=== PATIENT | male | born 1965 | race Caucasian/White ===

== ENCOUNTER 2017-11-25 05:37 | Day surgery (SDC) | payer OTHER, SELFPAY ==
[2017-11-25] VITALS (7 sets, daily range): BP systolic 74–130; BP diastolic 50–90; PULSE 68–90; RESP 18–20; TEMP 36.1–36.6; O2SAT 95–100; BMI 22.7
--- NOTE | 2017-11-25 | COLBX_PTH ---
PATIENT: SHIRA ROMERO II LOC: EN U#:[id number] AGE/SX: 52/M ROOM: RE11/25/[address]: Dr. Lang King MD : [id number] BED: DIS: 11/25/2017 SPEC #: [id number] RECD: 11/25/17 12:30 STATUS: GLEN TAYLOR #: [id number] ANTONELLA: 11/25/17 00:[address]: Lang King DEPT: SURGICAL PATHOLOGY RECD BY: Emmanuel Olivo ENTERED: 11/25/17 13:28 SP TYPE: COLON BX OTHR DR: Dr. Michael Pugh MD Tissues: Sigmoid colon biopsy Procedures: Surgery Specimen Level IV HEADER OPERATION: Colonoscopy PRE-OP DIAGNOSIS: Screening TISSUE SUBMITTED: Proximal sigmoid polyp MICROSCOPIC DIAGNOSIS Proximal sigmoid colon polyp, biopsy: Tubular adenoma. AM:zachary 11/26/17 MICROSCOPIC DESCRIPTION Slides are reviewed. GROSS DESCRIPTION Received in fixative is one container labeled with the patient's name and designated proximal sigmoid polyp. The specimen consists of a piece of muñoz-pink polyp measuring 0.5 x 0.5 x 0.3 cm. The specimen is totally submitted in one cassette. / AM:zachary 11/25/17 TC:5 CPT: 70572
--- NOTE | 2017-11-25 06:18 | PCM.HP.STD ---
Problem List (1) Screening for intestinal cancer Status: Acute History of Present Illness Date of Admission: 11/25/17 The patient is a 52 year old M who presents for screening colonoscopy. He enjoys good health. He has had some rectal discomfort. Rare bleeding. There is no family history of colon cancer. He has never had a previous colonoscopy. He has been told that he has a weak pelvic floor by urology. He does not note any fecal incontinence.] Past Medical History Allergies levofloxacin [From Levaquin] Allergy (Verified 11/24/17 13:29) Other HEADACHE sulfamethoxazole [From Bactrim] Allergy (Verified 11/24/17 13:29) Other HEADACHE trimethoprim [From Bactrim] Allergy (Verified 11/24/17 13:29) Other HEADACHE Home Medications: Ambulatory Orders Medication Instructions Recorded acetaminophen 325 mg capsule 500 mg PO Q6H PRN 10/16/17 Surgical History: no surgical history Smoking Status: Never smoker Review of Systems Constitutional: Denies: Anorexia Eyes: Denies: Blurred vision HEENT: Denies: Difficulty Hearing Cardiovascular: Denies: Chest Pain Respiratory: Denies: Cough Gastrointestinal: Denies: Abdominal Pain Genitourinary: Denies: Dysuria Neurological: Denies: Balance problems Psychiatric: Denies: Anxiety VTE Information - Inpt Only VTE Present on Admission: No Patient Problems: Active and Suspected Problems (Last Updated 10/16/17 @ 09:11 by Maddy Dupree) Screening for intestinal cancer (Acute) - Physical Exam General: Alert, Oriented x3, Cooperative HEENT: Atraumatic Oral: Moist Mucosa Neck: Supple Lungs: Clear to auscultation Cardiovascular: Regular rate Abdomen: Bowel Sounds Present, Soft, Non Tender, No Hepato-splenomegaly Skin: No rashes Musculoskeletal: No Tenderness to Palpation of Joints or Extremities Neurological: Cranial nerves II-XII grossly intact Psych/Mental Status: Normal Affect Vital Signs Temp Pulse Resp BP Pulse Ox 97.0 F L 90 20 H 130/90 H 100 11/25/17 06:04 11/25/17 06:04 11/25/17 06:04 11/25/17 06:04 11/25/17 06:04 Oxygen Delivery Method Room Air Weight: 154 lb 1.65 oz Body Mass Index (BMI) 22.7 Assessment/Plan Active and Suspected Problems (Last Updated 10/16/17 @ 09:11 by Maddy Dupree) Screening for intestinal cancer (Acute) I am recommending the patient a screening colonoscopy. He is aware of the technique, benefits, risks, alternatives. He has had an opportunity to ask and have questions answered. We will proceed at his discretion. He presents via open access program. Lang King M.D., F.A.C.S.
--- NOTE | 2017-11-25 06:51 | PCM.OPRPT ---
Problem List (1) Screening for intestinal cancer Status: Acute Report of Operation Date of Procedure: 11/25/17 Pre-Operative Diagnosis: Screening for intestinal cancer Post-Operative Diagnosis: Sigmoid and descending colon diverticulosis. Sessile polyp in the proximal sigmoid. Minimal anal pruritus Surgery/Procedure Performed:: Colonoscopy with snare polypectomy Description of Surgical Findings:: Timeout and informed consent was obtained. 52-year-old gentleman was taken to the endoscopy suite. He was placed in the left lateral decubitus position. Throughout the procedure he received a total of 100 mg Demerol and 4 mg of Versed. External inspection of the anus demonstrated some minimal discoloration of the skin within 2 cm of the anus. There did not appear to be any active irritation. There were no significant external hemorrhoidal changes. Inspection of the anal tissue demonstrated some very slight irritation with minimal hemorrhoidal findings. Digital rectal exam normal 2+ smooth prostate no mass lesions no blood. Flexible colonoscope inserted in the rectum and readily advanced to the left colon transverse colon and into the ascending colon. The cecum ileocecal valve area was nicely achieved. Bowel prep was very good. The scope was carefully withdrawn from the cecum and ascending colon transverse colon descending colon and sigmoid colon. In the descending and sigmoid colon diverticulosis was identified but no evidence of acute inflammatory changes. A sessile 9 mm polyp in the proximal sigmoid was identified photograph was obtained snare cautery blend setting of 24 was used to resect and retrieve. Hemostasis was nicely intact. The scope was further withdrawn retroflexed within the rectum the anorectal verge inspected this did not appear to be remarkable. Scope was then withdrawn from the anus with just very minimal irritation of the anus noted. The procedure was completed the patient tolerating it well. Impression descending and sigmoid diverticulosis Sessile polyp of the proximal sigmoid colon Minimal anal excoriation Recommendations will be for follow-up colonoscopy in 3 years. The patient has not had a previous colonoscopy. He will be notified of pathology results. Regarding the anal pressure discomfort actually no overt gross findings were identified. Will offer the patient consideration of a short course of metronidazole possible use of hydrocortisone ointment. The precise etiologies to the anal discomfort with lifting not identified. Cc: Dr. Michael King M.D., F.A.C.S. Type of Anesthesia:: IV Sedation
== END 2017-11-25 07:45 | disposition home or self-care (01) ==
LOC: EN 05:37 → AC 05:38
PROVIDERS: Family Provider Family Medicine; PCP Family Medicine; Visit Provider Surgery
PROC: 0DJD8ZZ Inspection of Lower Intestinal Tract, Via Natural or Artificial Opening Endoscopic (ICD-10-PCS; CPT 45378; principal; 2017-11-25 06:25)
DX: Z12.11 Encounter for screening for malignant neoplasm of colon (principal); D12.5 Benign neoplasm of sigmoid colon; K57.30 Diverticulosis of large intestine without perforation or abscess without bleeding; L29.0 Pruritus ani
CPT/HCPCS: 45385; 88305; J7120

== ENCOUNTER 2018-04-29 15:50 | Emergency (ER) | payer OTHER, SELFPAY ==
[2018-04-29 15:52] VITALS: BP 133/68; PULSE 65; RESP 16; TEMP 36.3; O2SAT 98; BMI 22.7
--- NOTE | 2018-04-29 15:59 | CT_ITS ---
STUDY: CT ABDOMEN AND PELVIS WITHOUT CONTRAST REASON FOR EXAM: Male, 53 years old. Right flank pain RADIATION DOSAGE (If Supplied By Facility): CTDIvol = ( 6.29 ) mGy, DLP = ( 319.02 ) mGycm TECHNIQUE: Transaxial images were obtained from the dome of the diaphragm to the symphysis pubis without oral contrast, and without intravenous contrast. Sagittal and coronal images were reconstructed. Individualized dose optimization techniques were used for this CT. COMPARISON: None. FINDINGS: The visualized lung bases are unremarkable. The visualized portions of the heart are within normal limits. Normal liver. There are incidental liver cyst as much as 1.4 cm greatest dimension. There are multiple gallstones. Normal spleen. Normal pancreas. Normal bilateral adrenal glands. Right kidney has a 3.4 cm low-attenuation mass in the upper to mid portions which needs further evaluation, since it is not clearly a cyst. There is additional probable cyst 2.7 cm sized of the posterior right kidney. Question of mild right hydronephrosis. Possible 2 mm distal right ureteral calculus suggested on axial image 143. Left kidney has a 1 or 2 mm mid left renal stone. Left kidney otherwise normal. Evaluation of the GI tract is limited by absence of oral contrast. Cannot exclude stomach wall thickening. No dilated loops of bowel or evidence for obstruction. Cannot exclude segmental thickening of the hanks of the small or large bowel. Cannot exclude enteritis or colitis. Moderate diffuse fecal retention. There has been previous appendectomy. Normal abdominal aorta. Normal inferior vena cava. Normal retroperitoneum. Normal urinary bladder. There is enlargement of the prostate gland. Normal abdominal wall. Normal osseous structures. CT/Abdomen/Pelvis without Cont IMPRESSION: Probable 2 mm distal right ureteral catheter chest. Probable right renal cysts but ultrasound recommended. Tiny nonobstructing mid left renal stone. Electronically Signed: Wally Fry MD at 17:10 EDT , Service support ,
--- NOTE | 2018-04-29 16:04 | ED.DCSUM_ITS ---
- ER Visit Summary Date of Service: 04/29/18 Chief Complaint: Sudden onset right flank pain History of Present Illness: The patient is a 53 M no senior past medical history only prior surgery by lateral cataracts. He states around 1030 today at your cutting his hedges he developed right flank pain. Associated with nausea and diarrhea. No dysuria. No hematuria. No trauma. No prior history of kidney stones. No fever. No melena. Physical Examination: Well-appearing middle-aged male vital signs are stable afebrile. Pulse ox 90% room air no signs of hypoxia. H EENT exam unremarkable. Neck nontender no lymphadenopathy. Lungs clear to auscultation bilaterally. Heart regular rhythm no murmur rate about 70 abdomen is soft, nontender, nondistended, normal bowel sounds no peritoneal signs. No hernias or masses. No signs of obstruction. He is moving all 4 extremities. They are neurovascularly intact. Neurologically he is awake is alert he is moving all 4 extremities. Test Results: CMP was unremarkable other than a creatinine of 1.5. Previously he was around 1.1-1.2. Normal gap. Urinalysis showed microscopic hematuria. No infection. No bacteria. CT flank without contrast showed renal cysts. Incidental finding of gallstones. Suspected 2 mm right distal ureter kidney stone. Mild hydronephrosis. Right renal cysts 1 with questionable if it could be a mass instead of the cyst. I discussed this with the patient and they will follow that up. Emergency Department Course and Treatment: Patient's right flank pain may be secondary to a kidney stone. He will be treated with IV Dilaudid, IV Zofran IV Toradol. Labs and a CT of be obtained. Treatment Plan: Multiple repeat exams patient is doing much better after IV pain medications he is pain-free. He is comfortable being discharged home. Prescription for for [place] 10 no refill. Otherwise Motrin for pain. Follow-up with his PCP or Dr. Cardoso of urology for his creatinine which should normalize , the kidney stone which should pass in the questionable right renal cyst. Disposition: Discharge Impression: Acute right flank pain distal right ureteral calculi 2 mm Creatinine slightly elevated at 1.5 Right renal cysts rule out mass This note was generated with [employer]ation software. It may contain incorrect words, spelling, and punctuation that were not noted in review of the chart prior to signing ED Disposition - Plan for ED Patient: Disposition: Home or Assisted Living Chief Complaint: Flank Pain Instructions: ED Stone Renal W Colic Prescriptions: Hydrocodone/Acetaminophen [[place] 10-325 Tablet] 1 ea PO Q2H PRN PRN #10 tab PRN Reason: Pain Referrals: Michael Pugh MD [Primary Care Provider] - As Needed Ck Cardoso MD [STAFF PHYSICIAN] - As Needed Additional Instructions: Plenty of fluids and rest. Return if intractable pain that you are unable to control, intractable vomiting or feeling worse. Cysts on your right kidney, 1 is questionable if it could potentially be a mass which is unlikely but this will need repeat evaluation and imaging by your primary care physician or follow-up with the urologist Dr. Ranjeet Cardoso. Also your creatinine today was 1.5 was a slightly above normal this should improve but should be rechecked in the next several weeks. [place] for pain and Motrin. Strain your urine for the next 2 days to ensure that the stone is passed.
[2018-04-29] MEDS: Ondansetron 4 MG/2 ML Vial IV (16:15)
[2018-04-29] MEDS: Ketorolac 30 MG/ML Syringe IV (16:15)
[2018-04-29] MEDS: HYDROmorphone 1 MG/ML Syringe IV (16:15)
[2018-04-29 16:20] VITALS: BP 125/80; PULSE 60; RESP 14; O2SAT 99
[2018-04-29 16:51] LABS: Anion Gap 6 (5-15); BUN 15 mg/dL (7-18); Calcium,Total 8.7 mg/dL (8.5-10.1); Chloride 104 mmol/L (98-107); EST Glomerular Filtration Rate 52 mL/min (>60); Est Glom Filt Rate - Afr Amer 63 mL/min (>60); Glucose 115 mg/dL (74-106); Potassium 3.9 mmol/L (3.5-5.1); Sodium Level 140 mmol/L (136-145)
--- NOTE | 2018-04-29 16:55 | DCINST.ED_ITS ---
ED Disposition - Plan for ED Patient: Disposition: Home or Assisted Living Chief Complaint: Flank Pain Instructions: ED Stone Renal W Colic Prescriptions: Hydrocodone/Acetaminophen [[place] 10-325 Tablet] 1 ea PO Q2H PRN PRN #10 tab PRN Reason: Pain Referrals: Michael Pugh MD [Primary Care Provider] - As Needed Ck Cardoso MD [STAFF PHYSICIAN] - As Needed Additional Instructions: Plenty of fluids and rest. Return if intractable pain that you are unable to control, intractable vomiting or feeling worse. Cysts on your right kidney, 1 is questionable if it could potentially be a mass which is unlikely but this will need repeat evaluation and imaging by your primary care physician or follow-up with the urologist Dr. Ranjeet Cardoso. Also your creatinine today was 1.5 was a slightly above normal this should improve but should be rechecked in the next several weeks. [place] for pain and Motrin. Strain your urine for the next 2 days to ensure that the stone is passed.
[2018-04-29 17:00] VITALS: BP 132/70; PULSE 64; RESP 14; O2SAT 98
[2018-04-29 17:21] LABS: Bacteria 0 SEEN /hpf (None Seen); Mucous, Urine 0 SEEN /hpf (<or=2+)
[2018-04-29 17:26] LABS: Color, Urine Yellow (Yellow); Glucose, Dipstick Normal (Normal); Ketone-Dipstick 5 mg/dl (Negative); Leukocyte Esterase-Dipstick 25 /ul (Negative); Nitrite-Dipstick Negative (Negative); Occult Blood-Urine 250 /ul (Negative); Protein-Dipstick 30 mg/dl (Negative); Specific Gravity, Urine 1.025 (1.002-1.030); Urine Clarity Sl. Cloudy (Clear); Urine Urobilinogen 1 mg/dl (Normal)
[2018-04-29 17:27] LABS: Urine Bilirubin Dipstick 1 mg/dL (Negative)
[2018-04-29 17:35] LABS: White Blood Cells 0-5 SEEN /hpf (0-5)
[2018-04-29 17:36] LABS: Amorphous Sediment 1+ URATE; Red Blood Cells-Urine 10-25 SEEN /hpf (0-5); Squamous Epithelial Cells - UA 0-5 SEEN /hpf (0-5)
[2018-04-29 17:52] VITALS: BP 125/78; PULSE 62; RESP 14; O2SAT 98
== END 2018-04-29 17:56 | disposition home or self-care (01) ==
PROVIDERS: Emergency Provider Emergency Medicine; Family Provider Family Medicine; PCP Family Medicine
DX: N28.1 Cyst of kidney, acquired (principal); N20.1 Calculus of ureter; R79.89 Other specified abnormal findings of blood chemistry
CPT/HCPCS: 74176; 80048; 81001; 96374; 96375; 99284; A4216; J2405

== ENCOUNTER → 2018-05-19 07:21 | Outpatient (CLI) | payer OTHER, SELFPAY ==
--- NOTE | 2018-05-19 07:24 | RAD_ITS ---
STUDY: X-RAY LEFT FOOT, BIG TOE REASON FOR EXAM: Male, 53 years old. Patient has had an ongoing issue with plantar surface of big toe x 2 months. Pain and Callous. TECHNIQUE: 3 view(s) of the toe were obtained. COMPARISON: None. FINDINGS: Normal visualized metatarsus. There is arthrosis of the metatarsophalangeal (M.T.P.) joint. There is arthrosis of the interphalangeal joint. Normal phalanges and interphalangeal joints. The soft tissue structures are unremarkable. RAD/Toe(s) Min 2 Views IMPRESSION: There is arthrosis of the metatarsophalangeal (M.T.P.) joint. There is arthrosis of the interphalangeal joint. Electronically Signed: Cora Snowden MD at 20:13 EDT Tel , Service support ,
== END ==
PROVIDERS: Family Provider Family Medicine; PCP Family Medicine; Visit Provider Family Medicine
DX: M19.072 Primary osteoarthritis, left ankle and foot (principal)
CPT/HCPCS: 73660

== ENCOUNTER → 2018-05-29 07:14 | Outpatient (CLI) | payer OTHER, SELFPAY ==
--- NOTE | 2018-05-29 07:15 | CT_ITS ---
STUDY: CT ABDOMEN AND PELVIS WITH AND WITHOUT CONTRAST REASON FOR EXAM: Male, 53 years old. History of renal cyst. RADIATION DOSAGE (If Supplied By Facility): CTDIvol = ( 13.54 ) mGy, DLP = ( 769.94 ) mGycm TECHNIQUE: Transaxial images were obtained from the dome of the diaphragm to the symphysis pubis without oral contrast. 100 ml of Isovue 300 contrast was administered. Sagittal and coronal images were reconstructed. Individualized dose optimization techniques were used for this CT. COMPARISON: Comparison is made with prior study dated April 29, 2018. FINDINGS: The visualized lung bases are unremarkable. The visualized portions of the heart are within normal limits. There is a 1.5 cm cyst in the anterior medial portion of the dome of the right lobe of the liver. Scattered tiny cysts are also seen throughout the liver. There are multiple gallstones. Normal spleen. Normal pancreas. Normal bilateral adrenal glands. There is a 2.6 cm x 1.8 cm cyst in the superior posterior aspect of the right kidney. Along its lateral peripheral aspect of this cyst, there is a 1.3 cm mildly enhancing density. This is not a simple cyst. This may represent the residual renal tissue with some mass effect on the cyst. Correlation with ultrasound is recommended. There is also evidence of a 3.5 cm x 2.87 m cyst in the mid anterior portion of the right kidney. Normal left kidney. Normal visualized stomach. Normal small intestine. Normal colon. There are surgical clips in the region of the appendix consistent with a prior appendectomy. Normal abdominal aorta. Normal inferior vena cava. Normal retroperitoneum. Normal urinary bladder. Normal abdominal wall. Normal osseous structures. CT/CT Abd/Pelvis W/WO Contrast IMPRESSION: Right renal cyst as described. Possible peripheral focal area of enhancement in the upper pole cyst as described. Correlation with ultrasound is recommended. Electronically Signed: Terrence Alaniz MD at 11:04 EDT Tel [phone], Service support ,
== END ==
PROVIDERS: Family Provider Family Medicine; PCP Family Medicine; Visit Provider Urology
DX: N28.1 Cyst of kidney, acquired (principal)
CPT/HCPCS: 74178; Q9967

== ENCOUNTER → 2018-06-02 15:25 | Outpatient (CLI) | payer OTHER, SELFPAY ==
[2018-06-02 16:49] LABS: PSA,Total - Annual Screen 3.02 ng/mL (0.00-4.00)
== END ==
PROVIDERS: Family Provider Family Medicine; PCP Family Medicine; Visit Provider Urology
DX: Z12.5 Encounter for screening for malignant neoplasm of prostate (principal)
CPT/HCPCS: 36415; 84153; G0103

== ENCOUNTER 2022-06-30 08:07 | Emergency (ER) | payer OTHER, SELFPAY ==
[2022-06-30 08:09] VITALS: BP 121/78; PULSE 87; RESP 14; TEMP 36.8; O2SAT 99; BMI 20.2
--- NOTE | 2022-06-30 08:27 | CT_ITS ---
STUDY: CT ABDOMEN AND PELVIS WITHOUT CONTRAST REASON FOR EXAM: Male, 57 years old. Left flank pain, stones RADIATION DOSAGE (If Supplied By Facility): CTDIvol = ( 6.15 ) mGy, DLP = ( 317.81 ) mGycm TECHNIQUE: Transaxial images were obtained from the dome of the diaphragm to the symphysis pubis without oral contrast, and without intravenous contrast. Sagittal and coronal images were reconstructed. Individualized dose optimization techniques were used for this CT. COMPARISON: 05/29/2018 FINDINGS: The visualized lung bases are unremarkable. The visualized portions of the heart are within normal limits. Small low-density lesions/cysts are again seen unchanged since prior exam. Multiple gallstones are again seen. Normal spleen. Normal pancreas. Normal bilateral adrenal glands. 5 cm cyst in the pelvic region is again seen. There is 3.2 cm cyst in the lower pole of the increase in size since previous exam. Mild left hydronephrosis and hydroureter due to thin elongated stone in the left ureterovesical junction measuring about 3 mm. Normal visualized stomach. Normal small intestine. Diverticulosis of the sigmoid colon without evidence of acute diverticulitis. There are surgical clips in the region of the appendix consistent with a prior appendectomy. Normal abdominal aorta. Normal inferior vena cava. Normal retroperitoneum. Normal urinary bladder. Prominent prostate. Correlation with PSA level is recommended. There is a left-sided inguinal hernia containing adipose tissue. No demonstrated acute osseous changes. CT/Abdomen/Pelvis without Cont IMPRESSION: 1. Mild left hydronephrosis and hydroureter due to 3 mm stone in the left ureterovesical junction. 2. Left renal cyst slightly increased in size previous exam difficult to evaluate without contrast. 3. Multiple gallstones. 4. Diverticulosis without evidence of acute diverticulitis. Electronically Signed: José Luis Weber MD at 9:16 EDT ,
[2022-06-30] MEDS: 0.9% Normal Saline 1,000 ML 1000 ML IV (08:35)
[2022-06-30] MEDS: Ketorolac 30 MG/ML Syringe IV (08:35)
[2022-06-30] MEDS: Ondansetron 4 MG/2 ML Vial IV (08:35)
[2022-06-30 08:43] LABS: Absolute Lymphocyte Count 0.72 X10^3/uL (0.83-4.51); Basophil# 0.02 X10^3/uL; Basophil% 0.5 % (0-1); Eosinophil# 0.11 X10^3/uL; Eosinophils% 2.5 % (0-5); Hematocrit 43.7 % (40-54); Hemoglobin 14.2 g/dL (13.0-16.5); Lymphocyte # 0.72 X10^3/ul (0.83-4.51); Lymphocyte % 16.6 % (19-41); Mean Corp Hgb Conc 32.5 g/dL (32-36); Mean Corpuscular Hgb 30.3 pg (27.0-32.0); Mean Corpuscular Volume 93.4 fL (80-94); Mean Platelet Vol. 9.5 fl (6.2-12.0); Monocyte# 0.52 X10^3/uL; NRBC Flagged by Analyzer 0 % (0-5); Neutrophil # 2.96 X10^3/uL (2.7-7.7); Neutrophil % 68.2 % (47-70); Platelet Count 279 K/mm3 (150-450); RBC Distribution Width CV 12.5 % (11.6-14.6); Red Blood Count 4.68 M/mm3 (4.6-6.2); White Blood Count 4.3 K/mm3 (4.4-11.0)
[2022-06-30 08:58] LABS: Anion Gap 5 (5-15); BUN 16 mg/dL (7-18); BUN/Creat Ratio 12.8 RATIO (10-20); Calcium,Total 9.4 mg/dL (8.5-10.1); Chloride 106 mmol/L (98-107); Creatinine, Serum 1.25 mg/dL (0.70-1.30); EST Glomerular Filtration Rate 64 mL/min (>60); Est Glom Filt Rate - Afr Amer 77 mL/min (>60); Estimated Creatinine Clearance 60.26 ml/min; Glucose 134 mg/dL (74-106); Potassium 4.1 mmol/L (3.5-5.1); Sodium Level 140 mmol/L (136-145)
[2022-06-30 09:15] LABS: Bacteria 0 SEEN /hpf (None Seen); Squamous Epithelial Cells - UA 0 SEEN /hpf (0-5); White Blood Cells 0 SEEN /hpf (0-5)
[2022-06-30 09:22] LABS: Color, Urine Yellow (Yellow); Glucose, Dipstick Normal (Normal); Ketone-Dipstick 5 mg/dl (Negative); Leukocyte Esterase-Dipstick 25 /ul (Negative); Nitrite-Dipstick Negative (Negative); Occult Blood-Urine 250 /ul (Negative); Protein-Dipstick 30 mg/dl (Negative); Urine Bilirubin Dipstick Negative (Negative); Urine Clarity Clear (Clear); Urine Urobilinogen 1 mg/dl (Normal)
[2022-06-30 09:35] LABS: Calcium Oxalate Crystals Ur RARE /hpf (<or=2+); Mucous, Urine 1+ /hpf (<or=2+); Red Blood Cells-Urine 50-100 SEEN /hpf (0-5)
[2022-06-30 10:25] VITALS: BP 134/78; PULSE 78; RESP 16; TEMP 37.1; O2SAT 99
--- NOTE | 2022-06-30 15:56 | EDS_ITS ---
HPI History of Present Illness Chief Complaint: Flank Pain Informant: patient Onset/Context/Timing Onset: Yesterday Location: Left flank pain Current Severity: Moderate Maximum Severity: Severe Worsened by: Nothing Relieved by: Nothing Associated Symptoms Associated Symptoms: None Narrative Narrative: Patient presents for left flank pain. The pain does not radiate. It is severe. Came on suddenly. No associated symptoms. History of kidney stones. [facility] Medical History Encounter for screening for COVID-19 Fecal incontinence History of cataract Home Medications acetaminophen 325 mg capsule 500 mg PO Q6H PRN Pain 10/16/17 [History Last Taken Unknown] ondansetron 4 mg disintegrating tablet 4 mg PO Q8H PRN PRN Nausea #20 tabs 06/30/22 [Rx Last Taken Unknown] oxycodone-acetaminophen 5 mg-325 mg tablet (Percocet) 1 tab PO Q6H PRN pain 3 days #12 tabs 06/30/22 [Rx Last Taken Unknown] tamsulosin 0.4 mg capsule (Flomax) 0.4 mg PO DAILY #7 caps 06/30/22 [Rx Last Taken Unknown] Allergy/AdvReac Type Severity Reaction Status Date / Time levofloxacin [From Levaquin] Allergy Other Verified 06/30/22 08:17 sulfamethoxazole Allergy Other Verified 06/30/22 08:17 [From Bactrim] trimethoprim [From Bactrim] Allergy Other Verified 06/30/22 08:17 Surgical History History of appendectomy History of colonoscopy Social History Smoking Status: Never smoker alcohol intake: never ROS ROS ED Constitutional Constitutional ED: Denies chills Eyes Eyes: Denies blurry vision ENT ENT ED: Denies ear pain Cardiovascular Cardiovascular: Denies chest pain Respiratory/Chest Respiratory/Chest: Denies cough Gastrointestinal Gastrointestinal: Denies abdominal pain Genitourinary Genitourinary ED: Denies dysuria, hematuria or urinary frequency Musculoskeletal Musculoskeletal: Reports back pain; Denies arthralgias, myalgias or neck pain Integumentary Denies abscess Neurologic Neurologic: Denies headache(s) Psychiatric Psychiatric: Denies anxiety Endocrine Endocrinology: Denies cold intolerance Hematologic/Lymphatic Hematologic/Lymphatic: Denies easy bruising Allergic/Immunologic Allergic/Immunologic ED: Denies mouth swelling EXAM Physical Exam Const Vital Signs: 06/30/22 08:09 06/30/22 10:25 Temperature 98.2 F 98.7 F Temperature Source Temporal Pulse Rate 87 78 Respiratory Rate 14 16 Blood Pressure 121/78 H 134/78 H Blood Pressure Mean 92 Pulse Ox 99 99 Oxygen Delivery Method Room Air Positive well nourished and well developed General Appearance ED: well developed HEENT Reports moist mucous membranes Eyes EOMs intact bilaterally Resp normal respiratory effort Cardio regular rate and regular rhythm GI normal to inspection, nondistended, normoactive bowel sounds, non-tender and non-distended Back/Spine General Back: CVA tenderness Neuro oriented x3 Sensorium / Orientation: alert Psych mental status grossly normal Skin no rashes or lesions noted MDM MDM MDM Narrative Medical decision making narrative: Patient's symptoms sound like ureteral colic. He had a normal CBC and unremarkable BMP. Urinalysis did not show any evidence of infection. CT showed a left side UVJ stone measuring 3 mm with signs of obstruction. He also had a left renal mass, gallstones, and diverticulosis. Patient was treated with fluids and Toradol. Had improvement of his symptoms. He would likely pass this on his own without surgical intervention. He was referred to urology for follow-up. Prescription for pain meds, nausea meds, and Flomax. Return for any new or worsening issues. Follow-up for incidental findings as well. Impression #1 ureteral colic left Impression #2 left renal mass Impression #3 gallstones Impression #4 diverticulosis Disposition is discharged home Lab Data Attestation: I reviewed the patient's lab results. Labs: Laboratory Results - last 24 hr 06/30/22 06/30/22 06/30/22 08:19 08:19 09:10 WBC 4.3 L RBC 4.68 Hgb 14.2 Hct 43.7 MCV 93.4 MCH 30.3 MCHC 32.5 RDW Std Deviation 43.0 RDW Coeff of Robert 12.5 Plt Count 279 MPV 9.5 Immature Gran % (Auto) 0.200 Neut % (Auto) 68.2 Lymph % (Auto) 16.6 L [place] % (Auto) 12.0 H Eos % (Auto) 2.5 Baso % (Auto) 0.5 Absolute Neuts (auto) 3.0 Absolute Lymphs (auto) 0.72 L Nucleated RBC % 0 Sodium 140 Potassium 4.1 Chloride 106 Carbon Dioxide 29.0 Anion Gap 5 BUN 16 Creatinine 1.25 Estim Creat Clear Calc 60.26 Est GFR (MDRD) Af Amer 77 Est GFR (MDRD) Non-Af 64 BUN/Creatinine Ratio 12.8 Glucose 134 H Calcium 9.4 Urine Color Yellow Urine Clarity Clear Urine pH 5.0 Ur Specific [place] 1.030 Urine Protein 30 H Urine Glucose (UA) Normal Urine Ketones 5 H Urine Occult Blood 250 H Urine Nitrite Negative Urine Bilirubin Negative Urine Urobilinogen 1 H Ur Leukocyte Esterase 25 H Urine RBC 50-100 SEEN Urine WBC 0 SEEN Ur Squamous Epith Cells 0 SEEN Calcium Oxalate Crystal RARE Urine Bacteria 0 SEEN Urine Mucus 1+ Radiography Diagnostic Testing: Clinical Impression(s) from Imaging Studies Abdomen/Pelvis CT 06/30/22 08:27 IMPRESSION: 1. Mild left hydronephrosis and hydroureter due to 3 mm stone in the left ureterovesical junction. 2. Left renal cyst slightly increased in size previous exam difficult to evaluate without contrast. 3. Multiple gallstones. 4. Diverticulosis without evidence of acute diverticulitis. Electronically Signed: José Luis Weber MD at 9:16 EDT , Discharge Plan Triage Chief Complaint: Flank Pain ED Provider: Raghu Herrera Dx/Rx/DC Orders Instructions: ED Kidney Stone w/ Colic Prescriptions: New oxycodone-acetaminophen [Percocet] 5-325 mg tablet 1 tab PO Q6H PRN (Reason: pain) 3 Days Qty: 12 0RF ondansetron 4 mg tablet,disintegrating 4 mg PO Q8H PRN PRN (Reason: Nausea) Qty: 20 0RF tamsulosin [Flomax] 0.4 mg capsule 0.4 mg PO DAILY Qty: 7 0RF No Action acetaminophen 325 mg capsule 500 mg PO Q6H PRN (Reason: Pain) Primary Care Provider: Michael Pugh Referrals: Ck Cardoso MD [Med Staff - Active Staff] - Disposition Disposition: Home, Self Care Discharge Date/Time: 06/30/22 10:25
== END 2022-06-30 10:25 | disposition home or self-care (01) ==
PROVIDERS: Emergency Provider Emergency Medicine; PCP Family Medicine; Visit Provider Emergency Medicine
DX: N23 Unspecified renal colic (principal); N28.89 Other specified disorders of kidney and ureter; K80.20 Calculus of gallbladder without cholecystitis without obstruction; K57.90 Diverticulosis of intestine, part unspecified, without perforation or abscess without bleeding
CPT/HCPCS: 74176; 80048; 81001; 85025; 96361; 99283; J7030; A4216; J2405

== ENCOUNTER → 2022-07-30 | Outpatient (CLI) | payer OTHER, SELFPAY ==
[2022-07-30 08:16] LABS: PSA,Total - Annual Screen 4.53 ng/mL (0.00-4.00)
[2022-07-30 08:35] LABS: Hemoglobin A1c 5.7 % (3.8-5.6)
== END | disposition home or self-care (01) ==
LOC: LAB 06:02
PROVIDERS: PCP Family Medicine; Visit Provider Nurse Practitioner Family
DX: R73.01 Impaired fasting glucose (principal); Z12.5 Encounter for screening for malignant neoplasm of prostate
CPT/HCPCS: 36415; 83036; 84153; G0103

== ENCOUNTER → 2022-12-13 | Outpatient (CLI) | payer OTHER, SELFPAY ==
[2022-12-13 08:34] LABS: PSA,Total- Diagnostic 3.95 ng/mL (0.0-4.0)
== END | disposition home or self-care (01) ==
LOC: LAB 06:44
PROVIDERS: PCP Family Medicine; Referring Provider Urology; Visit Provider Urology
DX: R97.20 Elevated prostate specific antigen [PSA] (principal)
CPT/HCPCS: 36415; 84153

== ENCOUNTER 2023-02-11 06:01 | Day surgery (SDC) | payer OTHER, SELFPAY ==
[2023-02-11] VITALS (12 sets, daily range): BP systolic 90–121; BP diastolic 56–81; PULSE 66–83; RESP 16; TEMP 36.3–36.9; O2SAT 97–100; BMI 20.7
--- NOTE | 2023-02-11 06:13 | HP.PCM_ITS ---
[facility] - General General Date of Service: 02/11/23 Chief Complaint: Personal history of colon polyps [facility] Narrative SHIRA ROMERO, is a 57 M who presents today for surveillance colonoscopy. I assisted him October 2017 with a colonoscopy and removed a tubular adenoma from the sigmoid. He is currently doing well. No abdominal pain. No bright red blood per rectum or melena. No mucus. No unexpected weight loss. Since its origin he has had COVID-19 twice. First bout more severe than the second. He does not have any lingering symptoms. Denies any history of DVT. He does have some fecal incontinence but that seems to be better controlled recently. [facility] Medical History (Updated 02/06/23 @ 11:58 by Debbie Olea) Acute pharyngitis, unspecified Contact with and (suspected) exposure to other viral communicable diseases Encounter for screening for COVID-19 Fecal incontinence History of cataract History of kidney stones Personal history of colonic polyps Wears glasses Home Medications ondansetron 4 mg disintegrating tablet 4 mg PO Q8H PRN PRN Nausea #20 tabs 06/30/22 [Rx Last Taken Unknown] oxycodone-acetaminophen 5 mg-325 mg tablet (Percocet) 1 tab PO Q6H PRN pain 3 days #12 tabs 06/30/22 [Rx Last Taken Unknown] tamsulosin 0.4 mg capsule (Flomax) 0.4 mg PO DAILY #7 caps 06/30/22 [Rx Last Taken Unknown] Allergy/AdvReac Type Severity Reaction Status Date / Time levofloxacin [From Levaquin] Allergy Other Verified 02/06/23 11:56 sulfamethoxazole Allergy Other Verified 02/06/23 11:56 [From Bactrim] trimethoprim [From Bactrim] Allergy Other Verified 02/06/23 11:56 Family History (Updated 11/01/22 @ 09:03 by Alma Delia Snigleton) Father Prostate cancer Surgical History History of appendectomy History of colonoscopy (~10/2017) Social History (Updated 11/01/22 @ 09:03 by Alma Delia Singleton) household members: spouse current occupational status: employed Smoking Status: Never smoker alcohol intake: never ROS Constitutional Constitutional: Reports systems reviewed and no addt'l complaints, except as documented Cardiovascular Cardiovascular: Denies chest pain Respiratory/Chest Respiratory/Chest: Denies shortness of breath at rest Gastrointestinal Gastrointestinal: Denies abdominal pain, change in bowel habits, hematochezia or melena Physical Exam Const alert, oriented x3 and no apparent distress General Appearance: cooperative and comfortable Eyes General Eye: normal appearance of both eyes Neck General: normal visual inspection Chest inspection of chest normal Resp Effort and Inspection: able to speak in complete sentences and symmetric chest movement Auscultation: clear to auscultation bilaterally Cardio regular rate and regular rhythm GI soft to palpation, non-tender and non-distended Extremity no calf tenderness Neuro oriented x3 Psych thought process normal Assessment & Plan Assessment/Plan (1) Personal history of colonic polyps: PLAN: 57-year-old gentleman with personal history of colon polyps. Most recent colonoscopy October 2017. He presents for surveillance colonoscopy. He is aware of the technique, benefit, risk, alternatives. He has had an opportunity to ask and have questions answered. We will proceed as noted. Lang King M.D., F.A.C.S.
[2023-02-11] MEDS: Lactated Ringers 1,000 ML 15 ML IV (06:31)
--- NOTE | 2023-02-11 07:00 | COLBX_PTH ---
PATIENT: SHIRA ROMERO II LOC: U#:[id number] AGE/SX: 57/M ROOM: RE02/11/[address]: Dr. Lang King MD : 1965 BED: DIS: 02/11/2023 SPEC #: [id number] RECD: 02/11/23 10:07 STATUS: GLEN VAZQUEZ #: [id number] ANTONELLA: 02/11/23 07:[address]: Lang King DEPT: SURGICAL PATHOLOGY RECD BY: Dalila Griffin ENTERED: 02/11/23 10:49 SP TYPE: COLON BX OTHR DR: Dr. Michael Pugh MD Tissues: A - Cecum, NOS B - Sigmoid colon biopsy C - Sigmoid colon biopsy Procedures: Surgery Specimen Level IV HEADER OPERATION: Colonoscopy, open access (MOD) PRE-OP DIAGNOSIS: History of colonic polyps TISSUE SUBMITTED: A ? Cecum polyp biopsy, B ? Mid sigmoid polyp biopsy, C ? Distal sigmoid polyp biopsy MICROSCOPIC DIAGNOSIS A. Cecum polyp, biopsy: Fragments of tubular adenoma. B. Mid sigmoid polyp, biopsy: Hyperplastic polyp. C. Distal sigmoid polyp, biopsy: Fragments of colonic mucosa, no pathologic diagnosis. DALI:zachary 02/12/2023 MICROSCOPIC DESCRIPTION Slides are reviewed. GROSS DESCRIPTION A - Received in fixative is one container labeled with the patient's name and designated cecum polyp biopsy. The specimen consists of two irregular fragments of light muñoz soft tissue that in aggregate measure 0.6 x 0.3 x 0.1 cm. The specimen is totally submitted in one cassette. B - Received in fixative is one container labeled with the patient's name and designated mid sigmoid polyp biopsy. The specimen consists of two irregular fragments of light muñoz soft tissue that in aggregate measure 0.8 x 0.3 x 0.1 cm. The specimen is totally submitted in one cassette. C - Received in fixative is one container labeled with the patient's name and designated distal sigmoid polyp biopsy. The specimen consists of two irregular fragments of light muñoz soft tissue that in aggregate measure 0.6 x 0.2 x 0.1 cm. The specimen is totally submitted in one cassette. / DALI:zachary 02/11/2023 TC:1 CPT: 65413 x3
[2023-02-11] MEDS: Midazolam 5 MG/ML Syringe (07:13)
--- NOTE | 2023-02-11 07:39 | OP.COLON_ITS ---
Patient Name: David Dominguez Procedure Date: 02/11/2023 7:03 AM Date of : 1965 Age: 57 Procedure: Colonoscopy Indications: High risk colon cancer surveillance: Personal history of colonic polyps Providers: Lang King MD Referring MD: Michael Pugh Medicines: Midazolam 5 mg IV, Meperidine 100 mg IV Patient Profile: Last Colonoscopy: October 2017. Complications: No immediate complications. Procedure: Pre-Anesthesia Assessment: - Prior to the procedure, a History and Physical was performed, and patient medications and allergies were reviewed. The patient's tolerance of previous anesthesia was also reviewed. The risks and benefits of the procedure and the sedation options and risks were discussed with the patient. All questions were answered, and informed consent was obtained. Prior Anticoagulants: The patient has taken no previous anticoagulant or antiplatelet agents. ASA Grade Assessment: II - A patient with mild systemic disease. After reviewing the risks and benefits, the patient was deemed in satisfactory condition to undergo the procedure. After I obtained informed consent, the scope was passed under direct vision. Throughout the procedure, the patient's blood pressure, pulse, and oxygen saturations were monitored continuously. The adult colonoscope was introduced through the anus and advanced to the cecum, identified by appendiceal orifice and ileocecal valve. The colonoscopy was performed without difficulty. The patient tolerated the procedure well. The quality of the bowel preparation was good. The ileocecal valve and the appendiceal orifice were photographed. Moderate Sedation: Moderate (conscious) sedation was personally administered by the endoscopist. The following parameters were monitored: oxygen saturation, heart rate, blood pressure, and response to care. Total physician intraservice time was 15 minutes. Scope In: 7:15:37 AM Scope Withdrawal Time 0 hours 9 minutes 49 seconds Scope Out: 7:32:38 AM Total Procedure Duration Time 0 hours 17 minutes 1 second Findings: The digital rectal exam findings include non-thrombosed internal hemorrhoids and internal hemorrhoids that prolapse with straining, but spontaneously regress to the resting position (Grade II). Pertinent negatives include normal prostate (size, shape, and consistency). A 5 mm polyp was found in the cecum. The polyp was sessile. The polyp was removed with a cold biopsy forceps. Resection and retrieval were complete. A 4 mm polyp was found in the mid sigmoid colon. The polyp was sessile. The polyp was removed with a cold biopsy forceps. Resection and retrieval were complete. A 4 mm polyp was found in the distal sigmoid colon. The polyp was sessile. The polyp was removed with a cold biopsy forceps. Resection and retrieval were complete. Multiple diverticula were found in the sigmoid colon. Impression: - Non-thrombosed internal hemorrhoids and internal hemorrhoids that prolapse with straining, but spontaneously regress to the resting position (Grade II) found on digital rectal exam. - One 5 mm polyp in the cecum, removed with a cold biopsy forceps. Resected and retrieved. - One 4 mm polyp in the mid sigmoid colon, removed with a cold biopsy forceps. Resected and retrieved. - One 4 mm polyp in the distal sigmoid colon, removed with a cold biopsy forceps. Resected and retrieved. - Diverticulosis in the sigmoid colon. Recommendation: - Discharge patient to home. - Resume previous diet. - Continue present medications. - Repeat colonoscopy in 5 years for surveillance based on pathology results. - Telephone my office for pathology results in 1 week. Procedure Code(s): --- Professional --- 68336, Colonoscopy, flexible; with biopsy, single or multiple 77942, 59, Moderate sedation services provided by the same physician or other qualified health memory care director performing the diagnostic or therapeutic service that the sedation supports, requiring the presence of an independent trained observer to assist in the monitoring of the patient's level of consciousness and physiological status; initial 15 minutes of intraservice time, patient age 5 years or older Diagnosis Code(s): --- Professional --- Z86.010, Personal history of colonic polyps K64.1, Second degree hemorrhoids D12.0, Benign neoplasm of cecum D12.5, Benign neoplasm of sigmoid colon K57.30, Diverticulosis of large intestine without perforation or abscess without bleeding CPT copyright 2017 [employer]. All rights reserved. The codes documented in this report are preliminary and upon receptionist scheduler review may be revised to meet current compliance requirements. Lang King MD 02/11/2023 7:39:00 AM This report has been signed electronically. Number of Addenda: 0 Note Initiated On: 02/11/2023 7:03 AM
--- NOTE | 2023-02-11 07:40 | OP.CCLET_ITS ---
02/11/2023 Michael Pugh [address] [place] [address] Re : Colonoscopy procedure for David Dominguez Dear Dr. Pugh This procedure was performed on Saturday, February 11, 2023. My impressions and recommendations are as follows: Impressions : - Non-thrombosed internal hemorrhoids and internal hemorrhoids that prolapse with straining, but spontaneously regress to the resting position (Grade II) found on digital rectal exam. - One 5 mm polyp in the cecum, removed with a cold biopsy forceps. Resected and retrieved. - One 4 mm polyp in the mid sigmoid colon, removed with a cold biopsy forceps. Resected and retrieved. - One 4 mm polyp in the distal sigmoid colon, removed with a cold biopsy forceps. Resected and retrieved. - Diverticulosis in the sigmoid colon. Recommendations : - Discharge patient to home. - Resume previous diet. - Continue present medications. - Repeat colonoscopy in 5 years for surveillance based on pathology results. - Telephone my office for pathology results in 1 week. My findings are described in the full procedure note, which is enclosed. If I can be of further assistance, please feel free to contact me at Doctor phone number(s): Work: . Sincerely, Lang King MD 02/11/2023 7:39:00 AM This report has been signed electronically.
== END 2023-02-11 08:23 | disposition home or self-care (01) ==
PROVIDERS: PCP Family Medicine; Referring Provider Family Medicine; Visit Provider Surgery
PROC: 0DJD8ZZ Inspection of Lower Intestinal Tract, Via Natural or Artificial Opening Endoscopic (ICD-10-PCS; CPT 45378; principal; 2023-02-11 06:55)
DX: D12.0 Benign neoplasm of cecum (principal); K64.1 Second degree hemorrhoids; K57.30 Diverticulosis of large intestine without perforation or abscess without bleeding; Z86.16 Personal history of COVID-19; Z86.010 Personal history of colon polyps
CPT/HCPCS: 45380; 88305; 99152; 99153; J7120

== ENCOUNTER → 2024-01-15 | Outpatient (CLI) | payer SELFPAY ==
[2024-01-15 08:32] LABS: ALB/GLOB Ratio 1.1 RATIO (0.9-2.4); AST(SGOT) 26 U/L (15-37); Alanine Aminotransfer ALT/SGPT 36 U/L (16-61); Albumin, Serum 3.7 g/dL (3.2-5.0); Alkaline Phosphatase 66 U/L (45-117); Anion Gap 6 (5-15); BUN 17 mg/dL (7-18); BUN/Creat Ratio 15.7 RATIO (10-20); Calcium,Total 8.8 mg/dL (8.5-10.1); Chloride 105 mmol/L (98-107); Cholesterol 203 mg/dL (200); Creatinine, Serum 1.08 mg/dL (0.70-1.30); EST Glomerular Filtration Rate 75 mL/min (>60); Est Glom Filt Rate - Afr Amer 91 mL/min (>60); Globulin 3.4 g/dL (2.2-4.2); Glucose 93 mg/dL (74-106); High Density Lipoprotein 40 mg/dL; PSA,Total- Diagnostic 4.69 ng/mL (0.0-4.0); Potassium 4.1 mmol/L (3.5-5.1); Protein, Total 7.1 g/dL (6.4-8.2); Sodium Level 140 mmol/L (136-145); Triglycerides 286 mg/dL; Very Low Density Lipoprotein 57 mg/dL (5-40)
== END | disposition home or self-care (01) ==
PROVIDERS: PCP Family Medicine; Referring Provider Family Medicine; Visit Provider Family Medicine
DX: E78.00 Pure hypercholesterolemia, unspecified (principal); R97.20 Elevated prostate specific antigen [PSA]
CPT/HCPCS: 36415; 80053; 80061; 84153

== ENCOUNTER → 2024-07-01 | Outpatient (CLI) | payer SELFPAY ==
[2024-07-01 08:26] LABS: Cholesterol 205 mg/dL (200); High Density Lipoprotein 40 mg/dL; PSA,Total- Diagnostic 5.08 ng/mL (0.0-4.0); Triglycerides 167 mg/dL; Very Low Density Lipoprotein 33 mg/dL (5-40)
== END | disposition home or self-care (01) ==
PROVIDERS: PCP Family Medicine; Referring Provider Family Medicine; Visit Provider Family Medicine
DX: E78.00 Pure hypercholesterolemia, unspecified (principal); R97.20 Elevated prostate specific antigen [PSA]
CPT/HCPCS: 36415; 80061; 84153

== ENCOUNTER → 2024-10-11 | Outpatient (CLI) | payer SELFPAY ==
[2024-10-11 15:55] LABS: PSA,Total- Diagnostic 4.66 ng/mL (0.0-4.0)
== END | disposition home or self-care (01) ==
PROVIDERS: PCP Family Medicine; Referring Provider Family Medicine; Visit Provider Family Medicine
DX: R97.20 Elevated prostate specific antigen [PSA] (principal)
CPT/HCPCS: 36415; 84153